=== PATIENT | female | born 1990 | race Two or more races ===

== ENCOUNTER 2025-05-02 21:06 | Emergency (ER) | payer SELFPAY ==
[2025-05-02 21:10] VITALS: BMI 28.1
[2025-05-02 21:40] VITALS: BP 150/86; PULSE 75; RESP 16; TEMP 37.1; O2SAT 97
--- NOTE | 2025-05-02 21:49 | EDNOTE_ITS ---
<Statement entered by Jacquelin Johnson MD - 05/04/25 18:56> As co-signing physician, I was present and available for consult prn. I concur with the plan and care as documented by the midlevel provider. ED Eye Problem RME/HPI General Chief complaint: Eye Problems Stated complaint: R EYE SWELLING Time Seen by Provider: 05/02/25 21:45 Arrival date/time: 05/02/25 21:06 Mode of arrival: ambulatory Limitations: no limitations RME / HPI RME / HPI Narrative: 35-year-old female presents to ED with complaint of right eye pain and swelling x 2 days. chief complaint: eye pain and eye redness Onset (ago): day(s) (2 days) Onset description: gradual Duration: constant Location: right eye Place: home If Pain, Quality: sharp and aching Related Data Previous Rx's ?Medication ?Instructions ?Recorded erythromycin 5 mg/gram (0.5 %) eye 0.5 inch ophthalmic (eye) QID #50 05/02/25 ointment grams Allergies Allergy/AdvReac Type Severity Reaction Status Date / Time No Known Allergies Allergy Verified 05/02/25 21:16 Review of Systems Constitutional Constitutional: Reports system reviewed and no additional complaints, except as documented Eyes Eyes: Reports system reviewed and no additional complaints, except as documented, Denies dry eyes, Denies exophthalmos and Reports floaters Cardiovascular Cardiovascular: Denies chest pain with activity and Denies claudication ED Exam Narrative Physical exam: Right eye specifically the right upper eyelid is edematous and tender to palpation. EOMs are intact. In the sclera is not injected. There is no discharge presently. General Limitations: Present no limitations General appearance: Present alert and in no apparent distress Head Head exam: Present atraumatic Eye Eye exam: Present normal appearance (As above), PERRL and EOMI ENT ENT exam: Present normal exam, normal oropharynx and mucous membranes moist Neck Neck exam: Present normal inspection, full ROM and trachea midline Chest Chest inspection: Present normal inspection and symmetric chest wall rise Extremities Exam Extremities exam: Present normal inspection and full ROM Back Exam Back exam: Present normal inspection and full ROM Neurological Exam Neurological exam: Present alert and oriented X3 Psychiatric Psychiatric exam: Present normal affect and normal mood Skin Skin exam: Present warm, dry, intact and normal color (With exception of the right upper eye lid.) Course Quality Measures none (NA) Vital Signs Vital signs: Vital Signs Temperature 98.7 F 05/02/25 21:40 Pulse Rate 75 05/02/25 21:40 Respiratory Rate 16 05/02/25 21:40 Blood Pressure 150/86 H 05/02/25 21:40 Pulse Oximetry (%) 97 05/02/25 21:40 Oxygen Delivery Method Room Air 05/02/25 21:40 Eye MDM Narrative MDM Narrative:: Patient will go home with a topical biotic for the eye. She is to follow-up primary care physician within a week. If she is worse she may return here or to the PMD sooner. Patient is discharged in no apparent distress Patient data External records reviewed:: Other (specify) (NA) Clinical information provided by:: none (NA) Social determinants that could affect healthcare access:: none (NA) Patient has the following chronic illnesses:: NA How is presenting disease/condition affected by chronic disease/condition?: exacerbated by (MOVEMENT) Evaluation data The following diagnostics were reviewed and interpreted by me:: other (specify) (NA) Lab and/or radiology exams considered but not ordered:: NA Interpretation Summary: NA Medications / Prescriptions Medications or Prescriptions considered but not ordered:: NA Medication administrations:: Toradol Consultations Consultation(s) initiated? (list below): No Diagnosis Eye Problem Differential Diagnosis: corneal abrasion, conjunctivitis and subconjunctival hemorrhage Most likely diagnosis given after review of the tests above:: NA Admission Indicated Admission indicated?: not indicated Explain why admission is indicated or not indicated:: NA Admission Request Was there a request for admission?: No Disposition Plan Disposition Plan: Discharge Discharge Attestation Discharge Attestation: The patient and all family members were given an opportunity to ask questions and understood the discharge instructions. Discharge instructions specifically effects, indications for sooner follow up or return to the emergency department, and the expected course of current diagnosis. Patient condition: Stable Discharge Plan Plan Patient Disposition: HOME (Self Care) Discharge Disposition comment: Discharged to home in no apparent distress Patient condition on transfer: Stable Prescriptions/Referrals Prescriptions/Med Rec: New erythromycin 5 mg/gram (0.5 %) ointment 0.5 inch ophthalmic (eye) QID Qty: 50 0RF Problem List Clinical Impression: Hordeolum externum (stye) Patient/Caregiver Discharge Instructions Discharge Activity: activity as tolerated Print Language: Qatari Stand Alone Forms: Shana Award Info., Patient Portal Info Letter
[2025-05-02] MEDS: KETOROLAC INJ 60 MG/2 ML VIAL 30 MG IM (22:18)
== END 2025-05-02 22:23 | disposition home or self-care (01) ==
LOC: SERX 22:26
PROVIDERS: Emergency Provider Emergency Medicine
DX: H00.011 Hordeolum externum right upper eyelid (principal)
CPT/HCPCS: 96372; 99283; J1885